=== PATIENT | female | born 1940 | race Caucasian/White ===

== ENCOUNTER 2019-09-19 10:53 | Inpatient (IN) ==
--- NOTE | 2019-09-19 11:27 | PROVIDER DOCUMENTATION ---
HPI-General Adult - General Stated Complaint: nausea x 4 days/fall Time Seen by Provider: 09/19/19 11:09 Source: patient, family Allergies/Adverse Reactions: Patient Allergies Allergy/AdvReac Type Severity Reaction Status Date / Time adhesive Allergy RASH Verified 09/19/19 11:36 Home Medications: Home Medication List Medication Instructions Recorded Confirmed Last Taken Type Carvedilol [Coreg] 1 tab PO BID 11/16/17 02/06/19 Unknown History Lisinopril 20 mg PO DAILY 11/16/17 02/06/19 Unknown History Hydrochlorothiazide 12.5 mg PO DAILY 03/11/18 02/06/19 Unknown History Amoxicillin/Potassium Clav 1 ea PO BID #20 tab 02/06/19 Unknown Rx [Augmentin 875-125 Tablet] - History of Present Illness -Gen Adult Nature of Presenting Problems: 79yo female presents with progressive worsening nausea and weakness over the last 3-4 days. The patient reports hx of chronic nausea, however she has not had an appetite or a BM since last week Thursday. The patient has had associated symptoms of shortness of breath, cough with sputum, and decreased intake. The pt denies any fever, vomiting, bleeding, pain, or swelling. The pt does have hx of chronic brochiectasis as well as cough and shortness of breath, but is not on O2 at home. Review of Systems - Adult - REVIEW OF SYSTEMS - ADULT Constitutional: reports: no symptoms reported. denies: fever Eyes: reports: no symptoms reported. denies: eye pain Ears, Nose, Mouth & Throat: reports: other (increased mucous production) Cardiovascular: reports: no symptoms reported. denies: chest pain Respiratory: reports: chronic cough, shortness of breath Gastrointestinal: reports: constipation, nausea. denies: diarrhea, rectal bleeding Genitourinary: reports: no symptoms reported. denies: flank pain Musculoskeletal: reports: no symptoms reported. denies: back pain Integumentary: reports: no symptoms reported Neurological: reports: no symptoms reported, numbness (intermitent). denies: headache/migraines Psychiatric: reports: no symptoms reported. denies: alcohol/drug dependence Endocrine: reports: no symptoms reported Hematologic/Lymphatic: reports: no symptoms reported, other (no bleeding) Allergic/Immunologic: reports: no symptoms reported, other (no swelling) Past History - Adult - PAST MEDICAL HISTORY-ADULT Review of Records: reports: Old Records Reviewed Major Childhood Illnesses: reports: denies history Cardiovascular: reports: HTN Respiratory: reports: asthma, COPD Genitourinary: reports: chronic UTI's Neurological: reports: other (dementia) - PRIOR SURGERIES/PROCEDURES Surgical/Procedure History: reports: orthopedic (extremity), joint replacement (TKA and R hip) - IMMUNIZATION STATUS Childhood Immunizations: See Nurse Assessment Flu Vaccine: See Nurse Assessment - FAMILY HISTORY Family History: reviewed, not pertinent Physical Exam-General - CONSTITUTIONAL General Appearance: alert, mild distress, cachetic, thin - EYES Eyes: negative: conjuctival exudate, scleral icterus - HEAD, EARS, NOSE, MOUTH & THROAT HENMT: normocephalic/atraumatic. negative: moist mucous membranes (dry), pha rynx normal (purulent mucous noted) - NECK Neck: normal inspection - RESPIRATORY Respiratory: respiratory distress (mild tachypnea), decreased breath sounds (bases) - CARDIOVASCULAR Cardiovascular: regular rate, rhythm, no edema - GASTROINTESTINAL (ABDOMEN) Abdominal Exam: non tender, soft. negative: distended - MUSCULOSKELETAL Extremity: non-tender. negative: deformity, swelling - SKIN Integumentary: normal color, warm/dry. negative: cyanosis, jaundice, pallor - NEUROLOGIC Neurologic: grossly normal - PSYCHIATRIC Psych/Mental Status: normal mood/affect, normal thought content, normal thought process, anxious Progress - PLAN OF CARE/RESULTS Result Diagrams: 09/19/19 11:49 09/19/19 11:49 - REASSESSMENT Reassessment #1 Status: other (Pt lab work with hyponatremia as well as imaging concerning for bibasilar PNA. Pt started on abx for PNA and will admit for hypnatremia. Discu ssed with the hospitalist team who has accepted the patient.) - XRAY 1 XRAY Study: Chest Impression: See EMR Report (Patient: SUSAN HENDERSON Date: 09/19/19MR#: [id number] : 1940ADM Status: PRE ERAcct#: [id number] Age/Sex: 79/FRoom/Bed: Loc: ED Ordering Physician: Carmelo Hemphill MD Family Physician: Solo Del Rio MD Reason for Procedure: Cough Signed EXAM: CHEST-2 VIEWS INDICATION: Cough TECHNIQUE: 2 views COMPARISON: 02/06/2019 FINDINGS: There is a dense airspace infiltrate in the right lower lobe indicating pneumonia. There is also infiltrate in the left lower lobe. There is probably a small left effusion. No pneumothorax is appreciated. The cardiomediastinal silhouette and central vasculature are grossly unremarkable. IMPRESSION: Bibasilar infiltrates suggesting pneumonia. Electronically signed by Fidencio Conti 09/19/2019 11:47 AM 09/19/19 1147 Interpreting Physician: Fidencio Conti MD Dictated Date/Time: 09/19/19 1145 cc: Carmelo Hemphill MD; Solo Del Rio MD) Departure - Departure Date of Disposition Decision: 09/19/19 Time of Disposition Decision: 14:42 DIAGNOSIS: Hyponatremia Pneumonia Qualifiers: Pneumonia type: due to unspecified organism Laterality: bilateral Lung location: lower lobe of lung Qualified Code(s): J18.1 - Lobar pneumonia, unspecified organism Disposition: ADMITTED INPATIENT 09 Certified Medical Emergency: Emergent Condition: Fair - Critical Care Note This patient required my direct & personal management of CC.: No Attestation - Physician/ ZO Attestation Patient care was provided by Advanced Practice Provider:: No The physician spent face to face time with patient:: Yes Advanced Practice Provider documentation review:: Supervising physician onsite and consulted in the evaluation and care of this patient. The physician did have a face to face encounter with the patient.
--- NOTE | 2019-09-19 11:50 | Diag Imaging Result Doc PS360 ---
EXAM: CHEST-2 VIEWS INDICATION: Cough TECHNIQUE: 2 views COMPARISON: 02/06/2019 FINDINGS: There is a dense airspace infiltrate in the right lower lobe indicating pneumonia. There is also infiltrate in the left lower lobe. There is probably a small left effusion. No pneumothorax is appreciated. The cardiomediastinal silhouette and central vasculature are grossly unremarkable. IMPRESSION: Bibasilar infiltrates suggesting pneumonia. Electronically signed by Fidencio Conti 09/19/2019 11:47 AM
--- NOTE | 2019-09-19 12:11 | EKG Report ---
Test Performed on : 09/19/2019 12:07:13 PM Test Reason : Nausea Blood Pressure : / mmHG Vent. Rate : 067 BPM Atrial Rate : 067 BPM P-R Int : 192 ms QRS Dur : 164 ms QT Int : 460 ms P-R-T Axes : 074 -16 112 degrees QTc Int : 486 ms Sinus rhythm. with marked sinus arrhythmia. Left bundle branch block Abnormal ECG When compared with ECG of 06-FEB-2019 20:40, No significant change was found Unconfirmed Result
[2019-09-19] MEDS ORDERED: ZOFRAN IV ONE (12:17)
[2019-09-19 12:22] LABS: BASO# 0.01 X1000 (0.0-0.2); BASO% 0.1 % (0.0-0.8); EOS# 0.01 X1000 (0.0-0.7); EOS% 0.1 % (0.0-10.0); HEMATOCRIT 30.4 % (37.0-47.0); HEMOGLOBIN 10.1 g/dL (12.0-16.0); LYMPH% 19.2 % (20.5-51.1); MCH 28.8 PG (27-31); MCHC 33.2 g/dL (33-37); MCV 86.6 FL (81-99); MONO# 0.85 X1000 (0.11-0.59); MONO% 10.2 % (1.7-9.3); MPV 9.4 FL (7.4-10.4); NEUT# 5.87 X1000 (1.4-6.5); NEUT% 70.4 % (42.2-75.2); PLT 380 X1000 (130-400); RBC 3.51 XMIL (4.2-5.4); RDW 12.6 % (11.5-14.5); WBC 8.34 X1000 (4.8-10.8)
[2019-09-19 12:25] LABS: ESTIMATED GFR > 60
[2019-09-19 12:26] LABS: AGAP 11; ALB/GLOB RATIO 0.8; ALKALINE PHOSPHATASE 63 U/L (32-104); AMYLASE 60 U/L (20-200); BUN 7 mg/dL (8-22); CHLORIDE 83 mmol/L (98-107); COSMO 246; CREATININE 0.6 mg/dL (0.5-0.9); GLUCOSE 107 mg/dL (70-104); GOT 14 U/L (10-30); GPT 10 U/L (10-36); LIPASE 45 U/L (13-60); POTASSIUM 3.7 mmol/L (3.5-5.1); SODIUM 123 mmol/L (136-145); TCO2 29 mmol/L (25-35); TOTAL BILIRUBIN 0.78 mg/dL (0.20-1.00); TOTAL PROTEIN 6.8 g/dL (6.3-8.3)
[2019-09-19 12:29] LABS: URINE SOURCE CLEAN CATCH
[2019-09-19 12:34] LABS: BILIRUBIN URINE NEGATIVE (NEGATIVE); BLOOD URINE TRACE (NEGATIVE); COLOR YELLOW; GLUCOSE URINE NEGATIVE (NEGATIVE); KETONE URINE NEGATIVE (NEGATIVE); LEUKOCYTES URINE NEGATIVE (NEGATIVE); NITRITE URINE NEGATIVE (NEGATIVE); PH URINE 7.5; PROTEIN URINE NEGATIVE (NEGATIVE); SP GRAVITY URINE 1.012; TURBIDITY URINE HAZY (CLEAR); UR EPITHELIAL CELLS <10 /HPF (<10); URINE BACTERIA NEGATIVE /HPF; URINE RBC <10 /HPF (<10); URINE WBC <10 /HPF (<10); UROBILINOGEN URINE NORMAL (NORMAL)
[2019-09-19] MEDS ORDERED: ROCEPHIN 1 GM in NS 50 ML IV ONE (13:04)
[2019-09-19] MEDS ORDERED: ZITHROMAX 500 MG/NS 500 MG/250 ML IVPB IV SCH (13:15)
[2019-09-19] MEDS ORDERED: SAMSCA PO ONE (13:54)
[2019-09-19] MEDS ORDERED: ZITHROMAX 500 MG/NS 500 MG/250 ML IVPB IV ONE (14:00)
--- NOTE | 2019-09-19 14:02 | HISTORY AND PHYSICAL ---
PRIMARY CARE PHYSICIAN: Dr. Solo Del Rio. CHIEF COMPLAINT: Increased weakness, shortness of breath, cough that is productive of green sputum, decreased p.o. intake, and nausea. HISTORY OF PRESENTING ILLNESS: This is a 79-year-old female who presents to [facility] with complaints of increased weakness, shortness of breath, a productive cough of green thick sputum, and decreased p.o. intake with chronic nausea over the past several days that had progressively worsened. Workup showed she was saturating 95% on room air. White blood cell count was 8.34. Her sodium was 123 with a chloride of 83. Chest x-ray showed bibasilar infiltrates suggesting pneumonia. So, she will be admitted for further evaluation and treatment. PAST MEDICAL HISTORY: Hypertension, asthma, COPD, chronic bronchiectasis, chronic UTIs and dementia. PAST SURGICAL HISTORY: Right hip replacement and a right total knee. FAMILY HISTORY: Reviewed and noncontributory. SOCIAL HISTORY: She currently lives with family. Denies any tobacco, alcohol or illicit drug use. ALLERGIES: Adhesive. HOME MEDICATIONS: A current list will need to be obtained, reconciled, reviewed and restarted as appropriate. We will place an order for nursing to update and confirm home medications. LABORATORY DATA: Showed a white blood cell count of 8.34, hemoglobin 10.1, hematocrit 30.4, platelets 380,000. Sodium 123, potassium 3.7, chloride 83, CO2 29, BUN of 7, creatinine 0.6, glucose 107. Plasma lactate of 0.8. Amylase 60, lipase 45. Urinalysis is negative. Chest x-ray showed bibasilar infiltrates suggesting pneumonia. REVIEW OF SYSTEMS: She denied any fever, chills, blurred vision, dizziness. She has had increased generalized weakness, shortness of breath, productive cough of green sputum, nausea. Denied any vomiting, abdominal pain. She is positive for some constipation. Denied any diarrhea or burning or hurting with urination. PHYSICAL EXAMINATION: VITAL SIGNS: On arrival, she had a temperature of 97.9 degrees, pulse 79, respirations 18, blood pressure 150/65, saturating 95% on room air. GENERAL: This is a 79-year-old female who is lying in the bed and answers questions appropriately. HEENT: Normocephalic, atraumatic. Normal ENT inspection. Oropharynx and nares are clear. EYES: Pupils are equal, round, reactive to light and accommodation. Extraocular movements are intact. NECK: Normal inspection, normal range of motion. LUNGS: With decreased breath sounds to bilateral lower lobes. Equal lung expansion and chest wall movement noted. HEART: Regular rate and rhythm. No murmurs, rubs, or gallops. ABDOMEN: Soft, nontender, nondistended. Bowel sounds are present x4 quadrants. MUSCULOSKELETAL: She has 5/5 strength x4 extremities. NEUROLOGICAL: The cranial nerves 2-12 appear grossly intact. ASSESSMENT: 1. Bilateral lower lobe pneumonia. 2. Hyponatremia. 3. Generalized weakness. 4. Chronic nausea. PLAN: She will be admitted to the medical unit placed on telemetry. Placed on a healthy heart diet, O2 per protocol. We will place her on Rocephin 1 gram IV q.24, azithromycin 500 IV q.24, DuoNeb q.4 hours, Zofran 4 mg IV q.4 hours p.r.n., normal saline at 75 mL an hour, Lovenox 40 mg subcutaneous q.24 for DVT prophylaxis and recheck a CBC, BMP in the a.m. Further orders after seen by attending. Dictated by JALIL Garcia for Ezequiel South MD Addendum: Patient is seen and examined by myself. Agree with JALIL note. It reflects my assessment and plan. Patient is being admitted to hospital for bilateral lower lobe pneumonia. Will start broad spectrum antibiotics and will tailor them according to cultures. Will consult GI for this chronic nausea and failure to thrive. cc: JALIL Garcia MD Micah A. Howard, MD [facility]
[2019-09-19] MEDS ORDERED: TYLENOL PO PRN (15:26)
[2019-09-19] MEDS ORDERED: ZOFRAN IV PRN (15:26)
[2019-09-19] MEDS: DUONEB (A & A) INH SCH ×3 (16:36→23:07)
[2019-09-19] MEDS: NS 1,000 ML IV SCH (16:46)
[2019-09-19] MEDS: LOVENOX SUBQ SCH (16:46)
[2019-09-20] MEDS: DUONEB (A & A) INH SCH ×6 (03:43→23:18)
[2019-09-20 05:19] LABS: HEMATOCRIT 27.8 % (37.0-47.0); HEMOGLOBIN 8.8 g/dL (12.0-16.0); LYMPH# 1.97 X1000 (1.2-3.4); LYMPH% 24.6 % (20.5-51.1); MCH 27.6 PG (27-31); MCHC 31.7 g/dL (33-37); MCV 87.1 FL (81-99); MONO# 1.04 X1000 (0.11-0.59); MPV 9.3 FL (7.4-10.4); PLT 376 X1000 (130-400); RBC 3.19 XMIL (4.2-5.4); RDW 12.6 % (11.5-14.5); WBC 8.02 X1000 (4.8-10.8)
[2019-09-20 06:01] LABS: AGAP 13; BUN 5 mg/dL (8-22); CALCIUM 8.6 mg/dL (8.8-10.2); CHLORIDE 93 mmol/L (98-107); COSMO 263; CREATININE 0.6 mg/dL (0.5-0.9); ESTIMATED GFR > 60; GLUCOSE 86 mg/dL (70-104); POTASSIUM 3.1 mmol/L (3.5-5.1); SODIUM 133 mmol/L (136-145); TCO2 27 mmol/L (25-35)
[2019-09-20 07:21] LABS: LYMPHS 32 % (21-51); MONO 8 % (1-9); SEGS 60 % (42-75)
[2019-09-20] MEDS: NS 1,000 ML IV SCH (08:00)
[2019-09-20] MEDS ORDERED: VANCOMYCIN IV PER PHARMACY MISC SCH (08:45)
[2019-09-20] MEDS ORDERED: SAMSCA PO ONE (08:45)
[2019-09-20] MEDS ORDERED: KLOR-CON PO ONE (09:44)
[2019-09-20] MEDS ORDERED: VANCOMYCIN 1,500 MG in NS 250 ML IV ONE (10:00)
--- NOTE | 2019-09-20 10:19 | PROGRESS NOTE ---
DATE: 09/20/2019 SUBJECTIVE: Patient reports still feel short of breath, poor appetite that has been going on for a year but is getting worse in the last week. Also persistently nauseated. OBJECTIVE: Vital Signs: Temperature 98 degrees, heart rate 75, respiratory 18, blood pressure 147/61, O2 saturation 95% on 2 L nasal cannula. General: This is a chronically ill-looking, 79- year-old female, lying in bed, in no acute distress. Cardiovascular: S1, S2 heard. No murmurs, gallops, or rubs. Regular rate and rhythm. Respiratory: Decreased breath sounds globally with mild rhonchi noted in both pulmonary bases. Patient is not using any accessory muscles or having work of breathing. Abdomen: Soft. Nontender to palpation. Bowel sounds present. No organomegaly. Extremities: No clubbing, cyanosis, or edema. Peripheral pulses present in both legs. Neurological: Patient alert and oriented x3. Moves 4 extremities. LABORATORY DATA: White cell count is 8.02, hemoglobin 8.8, hematocrit 27.8, platelets 376,000, with BMP that reveals potassium 3.1 and sodium 133. ASSESSMENT AND PLAN: 1. Acute respiratory failure secondary to bilateral lower lobe pneumonia. At this point, considering that this patient is not breathing okay and having shortness of breath, we will switch antibiotics to vancomycin and Zosyn. White cell count is normal and she is not spiking any fever. We will continue with the same management. 2. Hyponatremia. The patient has received 1 dose of Samsca and sodium has risen to 133. I think there is a component of possible SIADH so I prefer to go ahead and do a CT of the chest considering his is chronic lung disease, in this case chronic obstructive pulmonary disease. 3. Poor appetite. The patient has been seen in the office by Dr. Lerma and she is not sure if she had a colonoscopy or endoscopy but considering that that problem persists, I prefer to go ahead and consult him. We will do a CT of the abdomen and pelvis to rule out any malignancy. We will continue to monitor. 4. Chronic nausea. Gastroenterology will be consulted. cc: Ezequiel South MD
[2019-09-20] MEDS: PRILOSEC PO SCH (11:30)
[2019-09-20] MEDS: COREG PO SCH (11:30)
[2019-09-20] MEDS: CELEXA PO SCH (11:30)
[2019-09-20] MEDS: ELMIRON PO SCH ×2 (11:31→21:53)
[2019-09-20] MEDS: REGLAN LIQUID PO SCH ×3 (11:32→16:47)
[2019-09-20] MEDS: ZOSYN 3.375 GM in NS 50 ML IV SCH ×3 (11:33→21:53)
[2019-09-20] MEDS ORDERED: ZITHROMAX 500 MG/NS 500 MG/250 ML IVPB IV SCH (14:00)
--- NOTE | 2019-09-20 14:31 | Diag Imaging Result Doc PS360 ---
EXAM: CT ABDOMEN/PELVIS W/WO CONTRAS INDICATION: poor appetite, weight loss TECHNIQUE: This exam was performed using automated exposure control, adjustment of mA or kV according to patient size, and/or use of iterative reconstruction technique. COMPARISON: 03/25/2019 FINDINGS: There is extensive consolidation seen at both lung bases with tree-in-bud opacities. This is also seen on the previous study but has worsened. Consolidations at the lower lobes are now confluent. There is also likely a component of atelectasis as well. This is suspicious for atypical pneumonia. There are trace pleural fluid collections at both lung bases. The gallbladder is contracted and is grossly unremarkable, otherwise. The liver, spleen, pancreas, and adrenal glands are essentially unremarkable. There are multiple stable renal cysts bilaterally. The pelvis is partially obscured by beam hardening artifact from right hip arthroplasty. The urinary bladder is distended and is essentially unremarkable, otherwise. There is moderate colonic diverticulosis coli. There is no definite diverticulitis. There is mild thickening of a segment of the sigmoid colon in the pelvis on the left but this is probably due to underdistention. No other definite bowel wall thickening or bowel obstruction is appreciated. The remainder of the GI tract is essentially unremarkable. No free abdominal gas or free fluid is appreciated. There is lumbar spondylosis. There is no evidence of acute osseous abnormality. IMPRESSION: 1.Extensive consolidation at both lung bases that has worsened since the previous study along with patchy tree-in-bud opacities. This probably represents an atypical pneumonia such as LIANA. Please correlate clinically. 2.Short segment of the sigmoid colon that exhibits mild wall thickening. However, this appears to be most likely due to underdistention rather than short segment colitis. Please correlate clinically. 3.Other incidental/nonacute findings detailed above. Electronically signed by Fidencio Conti 09/20/2019 2:29 PM
[2019-09-20] MEDS ORDERED: ROCEPHIN 1 GM in NS 50 ML IV SCH (15:00)
--- NOTE | 2019-09-20 15:13 | GASTROENTEROLOGY CONSULTATION ---
DATE: 09/20/2019 REASON FOR CONSULTATION: Weight loss, decreased appetite. HISTORY OF PRESENT ILLNESS: This is a 79-year-old female known to our practice. She was last seen in our office on 08/01/2019. She had an EGD on 05/24/2019, indications for abdominal pain and weight loss. Findings showed mild reflux esophagitis, otherwise normal stomach and normal duodenum. At that time, she was taking Prilosec daily. When she came into the office in July, she was still reporting some abdominal pain. She was reporting a 60 pound weight loss over the last year. At that time, we had recommended she have a follow-up colonoscopy since her last colonoscopy was in 2011. She was scheduled for the colonoscopy as an outpatient in August, but canceled the procedure because she had a urinary tract infection. The patient states since then she has just went downhill. She has nausea with poor appetite. She has had problems with her bowels. She has not had a bowel movement since last Thursday. She was given a laxative by Dr. Del Rio. I am not sure which one, patient cannot remember the name of it. She denies fever. Denies vomiting. Denies blood in the stool. She states she just does not have an appetite and does not feel like eating. She came into the hospital in with complaints of weakness, shortness of breath and productive cough. She has had findings of bilateral lower lobe pneumonia and has been started on antibiotics. She also had findings of hyponatremia. She has been given Samsca for her hyponatremia. Sodium level has improved today to 133 from 123 on admission. PAST MEDICAL HISTORY: Hypertension, asthma, COPD, chronic urinary tract infections, dementia. PAST SURGICAL HISTORY: Back surgery. She has had 5 back surgeries from 1970 to 1996. Her last colonoscopy was 2011. She had an EGD in May 2019 that showed reflux esophagitis, otherwise normal stomach and normal duodenum. She had hip replacement in 2008 and right total knee replacement. ALLERGIES TO: Adhesives causing rash. HOME MEDICATIONS: Albuterol inhaler twice a day, Coreg 12.5 mg daily, citalopram 10 mg daily, hydrochlorothiazide 12.5 mg daily, melatonin 1 every night, metoclopramide 1 teaspoon 3 times a day, Prilosec 1 daily, Zofran 8 mg every 8 hours as needed, Elmiron 100 mg twice a day. SOCIAL HISTORY: No reported alcohol or tobacco use. She has 1 child. She is retired. No reported tobacco use. REVIEW OF SYSTEMS: Per history of present illness. PHYSICAL EXAMINATION: Vital Signs: Temperature 97.9 degrees, pulse 65, respirations 18, blood pressure 130/63. General: Patient is awake. She is alert. She is in no acute distress. HEENT: Normocephalic, atraumatic. Pupils equal, round, reactive to light. Sclerae nonicteric. Respiratory: She has decreased breath sounds and rhonchi bilaterally. She is reporting productive cough. Cardiovascular: Regular rate and rhythm. Abdomen: Soft, nontender. Positive bowel sounds. Extremities: No lower extremity edema noted. Neurologic: Cranial nerves 2-12 grossly intact. Patient is awake and alert. DIAGNOSTIC RESULTS: Laboratory: Hematology: WBC 8.02, hemoglobin 8.8, hematocrit 27.8. Hemoglobin and hematocrit on admission 10.1 and 30.4, MCV 87.1, platelet 376,000. Chemistry; sodium 133. This has improved from 123 on admission, potassium 3.1, chloride 93, CO2 27, BUN 5, creatinine 0.6, glucose 86, calcium 8.6, total bilirubin 0.78, AST 14, ALT 10, alkaline phosphatase 63, albumin 3.0, amylase 60, lipase 45. Urinalysis negative except for trace amount of blood. Chest x-ray showing bilateral infiltrates suggesting pneumonia. ASSESSMENT AND PLAN: 1. Respiratory distress, dyspnea with findings of bilateral lower lobe pneumonia. Patient is started on antibiotics and respiratory management. 2. Hyponatremia. This can cause nausea. She has had Samsca. Sodium has increased to 133, hospitalist following. 3. Nausea, decreased appetite, weight loss. Patient had EGD in May 2019 that showed esophagitis, otherwise normal. When she came into the office in July, she was scheduled for a colonoscopy, but she had to cancel it because of a urinary tract infection. PLAN: Continue symptomatic treatment. Continue supportive care. Continue her PPI and p.r.n. medication for nausea. Once her respiratory status has improved and her pneumonia has resolved, she will need a colonoscopy that will most likely be done as an outpatient. I have instructed patient of this. Further plans will be made according to her progress. I have spoken with Dr. Leigh. I have also spoken with Dr. Lerma and further plans to be made as needed. Dictated by JALIL Plascencia for Allan Lerma MD cc: JALIL Alexandre MD
[2019-09-20] MEDS: LOVENOX SUBQ SCH (16:47)
[2019-09-21] MEDS: ZOSYN 3.375 GM in NS 50 ML IV SCH ×4 (03:05→22:47)
[2019-09-21] MEDS: NS 1,000 ML IV SCH ×3 (03:05→22:50)
[2019-09-21] MEDS: DUONEB (A & A) INH SCH ×6 (03:45→23:46)
[2019-09-21 05:26] LABS: BASO# 0.01 X1000 (0.0-0.2); BASO% 0.1 % (0.0-0.8); EOS# 0.03 X1000 (0.0-0.7); EOS% 0.4 % (0.0-10.0); HEMOGLOBIN 8.4 g/dL (12.0-16.0); IMM GRAN# 0.02 X1000 (0.0-0.04); IMM GRAN% 0.3 % (0.0-0.5); LYMPH# 1.65 X1000 (1.2-3.4); LYMPH% 24.7 % (20.5-51.1); MCH 27.7 PG (27-31); MCHC 31.1 g/dL (33-37); MCV 89.1 FL (81-99); MONO# 0.82 X1000 (0.11-0.59); MONO% 12.3 % (1.7-9.3); MPV 9.3 FL (7.4-10.4); NEUT# 4.16 X1000 (1.4-6.5); NEUT% 62.2 % (42.2-75.2); PLT 346 X1000 (130-400); RBC 3.03 XMIL (4.2-5.4); RDW 12.7 % (11.5-14.5); WBC 6.69 X1000 (4.8-10.8)
[2019-09-21 06:23] LABS: AGAP 8; ALBUMIN 2.3 g/dL (3.5-5.0); BUN 7 mg/dL (8-22); CALCIUM 8.6 mg/dL (8.8-10.2); CHLORIDE 98 mmol/L (98-107); COSMO 266; CREATININE 0.6 mg/dL (0.5-0.9); ESTIMATED GFR > 60; GLUCOSE 97 mg/dL (70-104); PHOSPHORUS 2.2 mg/dL (2.7-4.5); POTASSIUM 3.4 mmol/L (3.5-5.1); SODIUM 134 mmol/L (136-145); TCO2 28 mmol/L (25-35)
--- NOTE | 2019-09-21 08:22 | Diag Imaging Result Doc PS360 ---
EXAM: CT THORAX W/CONTRAST 09/21/2019 HISTORY: pneumonia, hyponatremia TECHNIQUE: This exam was performed using automated exposure control, adjustment of mA or kV according to patient size, and/or use of iterative reconstruction technique. COMMENT: The current study is compared with the previous examination of 05/25/2018. There are bilateral pleural effusions. These were not present at the time the previous study. There is calcific and noncalcified adenopathy in the right hilum and subcarina. There are no filling defects in the pulmonary arteries. There are large calcified nodes in the right hilum and calcified granulomata present in the right lower lobe and spleen. There are some granulomata in the liver. There is a small pericardial effusion. The left ventricle is distended as is the left atrium. There are coronary calcifications. There is no evidence of acute bony abnormality. There is consolidation in both lower lobes. This is worse than on the previous study. There are scattered tree-in-bud opacities in the upper lobes inferiorly and particularly in the lingula and right middle lobe. This was also present at the time the previous study. There has been some improvement with regard to the more consolidated opacities in the right middle lobe since the previous examination. IMPRESSION: Bibasilar pneumonia and diffuse bronchiolitis. Bilateral pleural effusions. Electronically signed by Rey Davalos 09/21/2019 8:20 AM
[2019-09-21] MEDS: REGLAN LIQUID PO SCH (10:27)
[2019-09-21] MEDS: CELEXA PO SCH (10:28)
[2019-09-21] MEDS: PRILOSEC PO SCH (10:28)
[2019-09-21] MEDS: COREG PO SCH (10:28)
[2019-09-21] MEDS: ELMIRON PO SCH ×2 (10:29→22:47)
[2019-09-21] MEDS ORDERED: KLOR-CON PO ONE (12:36)
[2019-09-21] MEDS ORDERED: SODIUM PHOSPHATE 35 MMOL in NS 250 ML IV ONE (12:36)
[2019-09-21] MEDS: CARAFATE LIQUID PO SCH ×2 (13:19→22:47)
[2019-09-21] MEDS: REGLAN IV SCH ×2 (13:19→18:19)
[2019-09-21] MEDS: PROTONIX IV SCH (13:20)
--- NOTE | 2019-09-21 13:23 | PROGRESS NOTE ---
DATE: 09/21/2019 SUBJECTIVE: Patient reports breathing better but her appetite is really poor and has been for the last year. Denies any other symptoms. No fever or chills. OBJECTIVE: Vital Signs: Temperature 98.7 degrees, heart rate 76, respiratory rate 18, blood pressure 133/66, O2 saturation 99% on 2 L nasal cannula. General: This is a chronically ill- looking, malnourished 79-year-old female lying in bed, in no acute distress. Cardiovascular: S1, S2 heard. No murmurs, gallops, or rubs. Regular rate and rhythm. Respiratory: Minimal rhonchi noted in both pulmonary bases. Patient not using any accessory muscles or having work of breathing. Abdomen: Soft, nontender to palpation. Bowel sounds present. No organomegaly. Extremities: No clubbing, cyanosis, or edema. Peripheral pulses present in both legs. Neurological: Patient alert and oriented x3. Moves 4 extremities. LABORATORY DATA: White cell count 6.69, hemoglobin 8.4, hematocrit 27.0. Platelets 346,000 with potassium 3.4, and phosphorus 2.2. ASSESSMENT AND PLAN: 1. Acute respiratory failure secondary to bilateral lower lobe pneumonia. That is what the CT of the chest confirmed. No signs of malignancy. At this time, we are going to continue with current antibiotic management. White cell count is normal. She is not spiking any fever. She is requiring only 2 L of oxygen by nasal cannula. We will continue with same management. 2. Hyponatremia. The patient has received Samsca 1 dose yesterday and sodium is almost back to normal. We will continue to monitor. 3. Poor appetite. The CT of the abdomen did not show any obvious problems in the GI tract. She has been seeing Dr. Lerma's office and had an esophagogastroduodenoscopy. She reports complaining of not only the heartburn but also nausea. We will start Protonix and will restart her metoclopramide as well. At this point, we will continue with the same management. 4. Disposition: We will continue to monitor this patient closely. cc: Ezequiel South MD
[2019-09-21] MEDS: LOVENOX SUBQ SCH (15:29)
[2019-09-21] MEDS ORDERED: VANCOMYCIN 1,300 MG in NS 250 ML IV SCH (22:00)
[2019-09-22] MEDS: PROTONIX IV SCH ×2 (03:05→14:48)
[2019-09-22] MEDS: CARAFATE LIQUID PO SCH ×3 (03:05→14:48)
[2019-09-22] MEDS: REGLAN IV SCH ×2 (03:06→09:04)
[2019-09-22] MEDS: SODIUM CHLORIDE 0.9% INJ SCH ×2 (03:06→14:48)
[2019-09-22] MEDS: ZOSYN 3.375 GM in NS 50 ML IV SCH ×2 (03:07→09:50)
[2019-09-22] MEDS: DUONEB (A & A) INH SCH ×4 (03:41→15:51)
[2019-09-22 05:28] LABS: BASO# 0.01 X1000 (0.0-0.2); BASO% 0.1 % (0.0-0.8); HEMATOCRIT 26.3 % (37.0-47.0); HEMOGLOBIN 8.2 g/dL (12.0-16.0); LYMPH# 2.32 X1000 (1.2-3.4); MCH 27.8 PG (27-31); MCHC 31.2 g/dL (33-37); MCV 89.2 FL (81-99); MONO# 0.87 X1000 (0.11-0.59); MONO% 12.7 % (1.7-9.3); PLT 332 X1000 (130-400); RBC 2.95 XMIL (4.2-5.4); RDW 13.1 % (11.5-14.5); WBC 6.83 X1000 (4.8-10.8)
[2019-09-22 05:49] LABS: LYMPHS 24 % (21-51); SEGS 58 % (42-75)
[2019-09-22 05:53] LABS: AGAP 10; ALBUMIN 2.3 g/dL (3.5-5.0); BUN 4 mg/dL (8-22); CALCIUM 8.6 mg/dL (8.8-10.2); CHLORIDE 96 mmol/L (98-107); COSMO 263; CREATININE 0.5 mg/dL (0.5-0.9); ESTIMATED GFR > 60; GLUCOSE 96 mg/dL (70-104); PHOSPHORUS 2.9 mg/dL (2.7-4.5); POTASSIUM 3.8 mmol/L (3.5-5.1); SODIUM 133 mmol/L (136-145); TCO2 27 mmol/L (25-35)
[2019-09-22] MEDS: COREG PO SCH (09:08)
[2019-09-22] MEDS: PRILOSEC PO SCH (09:08)
[2019-09-22] MEDS: ELMIRON PO SCH (09:09)
[2019-09-22 12:07] VITALS: BP 148/75
--- NOTE | 2019-09-22 20:21 | DISCHARGE SUMMARY ---
ADMISSION DATE: 09/19/2019 DISCHARGE DATE: 09/22/2019 PRIMARY CARE PHYSICIAN: Dr. Solo Del Rio. ADMISSION DIAGNOSIS: 1. Bilateral lower lobe pneumonia. 2. Hyponatremia. 3. Generalized weakness. 4. Chronic nausea. DISCHARGE DIAGNOSIS: 1. An acute respiratory failure secondary to bilateral lower lobe pneumonia improved. 2. Hyponatremia, improved. 3. Poor appetite. SUMMARY OF FINDINGS: This is a 79-year-old female who presented to the ER with complaints of increased weakness, shortness of breath, productive cough of green thick sputum, decreased p.o. intake, chronic nausea that had progressively worsened. She arrived, her chest x-ray showed a bibasilar infiltrate suggesting pneumonia. Her sodium was also noted to be 123 with a chloride of 83. She was admitted, placed on IV antibiotics, O2, duo nebs, IV hydration. We did consult GI for her chronic nausea and failure to thrive who suggested that we continue her PPI and p.r.n. medications for nausea. Once her pneumonia had resolved, they felt that she can have a colonoscopy done on outpatient basis and patient verbalized understanding. Her sodium has gone up to 133 from 123. She has been afebrile for greater than 24 hours. Physical therapy ambulated her today and she walked well with a walker so it is now felt that she can safely be discharged home with home health. DISCHARGE MEDICATIONS: Will include albuterol nebulizer b.i.d., Coreg 12.5 mg p.o. daily, citalopram 10 mg p.o. daily, hydrochlorothiazide 12.5 mg p.o. daily, Levaquin 750 mg p.o. daily #7 with no refills, melatonin 3 mg p.o. at bedtime, metoclopramide 5 mg per 5 mL 1 teaspoon p.o. t.i.d., omeprazole 40 mg p.o. daily and Zofran 8 mg p.o. q.8 hours p.r.n. FOLLOWUP: She will follow with her primary care physician in 1 to 2 weeks and call the office for an appointment. She will follow up with Dr. Lerma from GI to schedule her outpatient colonoscopy and call their office for an appointment. TIME SPENT: 35 minutes. Dictated by JALIL Garcia for Javier Abbasi MD cc: Allan Lerma MD
== END 2019-09-22 16:26 | disposition home health service (06) | DRG 190 ==
LOC: SUPCPDRO → ED 10:53 → 1N 13:20 → SUATTDRO 13:20
PROVIDERS: ATTEND Internal Medicine